=== PATIENT | female | born 1955 | race Caucasian/White ===

== ENCOUNTER 2017-07-29 03:03 | Emergency (ER) | payer OTHER ==
[~2017-07-29] VITALS: Ht 162.6 cm; Wt 72.6 kg
[~2017-07-29 03:03] MED LIST: ASPI325B; CALGLU500; LEVSOD200; MULVITMINE; PROACE100 PO; RXPROACE PO; SERT50; ZAFI20
[2017-07-29] MEDS ORDERED: Lisinopril2.5 MG (03:22)
[2017-07-29] MEDS ORDERED: BENZ100A PO (04:15)
== END 2017-07-29 04:25 | disposition home or self-care (01) ==
LOC: ER 03:03
DX: J40 Bronchitis, not specified as acute or chronic (principal); Z88.5 Allergy status to narcotic agent; Z91.018 Allergy to other foods; Z88.8 Allergy status to other drugs, medicaments and biological substances; Z79.82 Long term (current) use of aspirin; Z79.899 Other long term (current) drug therapy
CPT/HCPCS: 71046; 94640; 99283

== ENCOUNTER → 2020-11-21 | Outpatient (CLI) | payer OTHER ==
[~2020-11-21] MED LIST changes: +BENZ100A PO; +Lisinopril2.5 MG
== END | disposition home or self-care (01) ==
LOC: LAB SHORT 11:12 → LAB 11:12
DX: R05 Cough (principal); Z20.822 Contact with and (suspected) exposure to COVID-19
CPT/HCPCS: U0003

== ENCOUNTER → 2023-03-19 | Outpatient (CLI) | payer MEDICARE ==
[2023-03-19 12:12] LABS: Stool Occult Bld Immuno 1 Positive (NEGATIVE)
== END | disposition home or self-care (01) ==
LOC: LAB 05:30 → LAB SHORT 05:30
PROVIDERS: Family Medicine
DX: Z12.11 Encounter for screening for malignant neoplasm of colon (principal)
CPT/HCPCS: G0328

== ENCOUNTER → 2025-03-16 | Outpatient (CLI) | payer MEDICARE | LOC: LAB SHORT 16:46 → LAB 16:46 | DX: R30.0 Dysuria (principal) | CPT/HCPCS: 87086 ==